=== PATIENT | female | born 1960 | race Caucasian/White ===

== ENCOUNTER 2017-04-11 08:21 | Emergency (ER) | payer BC ==
--- NOTE | 2017-04-11 08:29 | UC ---
Throat Pain/Nasal Mehrdad HPI - HPI Summary HPI Summary: sinus pain and nasal congestion worsening over the past 7 days now feels like she has a lot of drainage in her throat - History of Current Complaint Chief Complaint: UCRespiratory Stated Complaint: SINUS COMPLAINT Time Seen by Provider: 04/11/17 08:26 Hx Obtained From: Patient Hx Last Menstrual Period: JUN 2015 ?: No Onset/Duration: Sudden Onset, Lasting Days, Worse Since - getting worse daily Severity: Moderate Pain Intensity: 6 Pain Scale Used: 0-10 Numeric Cough: Nonproductive Associated Signs & Symptoms: Positive: Sinus Discomfort, Nasal Discharge - Allergies/Home Medications Allergies/Adverse Reactions: Allergies Allergy/AdvReac Type Severity Reaction Status Date / Time Codeine AdvReac Nausea Verified 04/11/17 08:39 Home Medications: Home Medications Cholecalciferol [Vitamin D3] 2,000 unit PO DAILY 04/11/17 [History Confirmed ] Conjugated Estrogens VAG CM* [Premarin VAG CREAM*] 1 applic VAGINAL SEE INSTRUCTIONS 04/11/17 [History Confirmed 04/11/17] Fexofenadine HCl [Allergy Relief] 60 mg PO DAILY 04/11/17 [History Confirmed ] Multivitamins/Minerals TAB* [Theragran/minerals TAB*] 1 tab PO DAILY 04/11/17 [ History Confirmed 04/11/17] Top Steroid Vaginal Cream 1 applic TOPICAL WEEKLY 04/11/17 [History Confirmed ] PMH/Surg Hx/FS Hx/Imm Hx Previously Healthy: No Respiratory History: Asthma - Surgical History Surgical History: Yes Surgery Procedure, Year, and Place: ROTATOR CUFF REPAIR -RIGHT - Family History Known Family History: Positive: Unknown - Social History Occupation: Employed Full-time Lives: With Family Alcohol Use: Daily Substance Use Type: None Smoking Status (MU): Never Smoked Tobacco Review of Systems Constitutional: Chills, Fatigue Skin: Negative Eyes: Negative ENT: Sore Throat, Ear Ache, Nasal Discharge, Sinus Congestion, Sinus Pain/ Tenderness Respiratory: Cough Cardiovascular: Negative Gastrointestinal: Negative Genitourinary: Negative Motor: Negative Neurovascular: Negative Musculoskeletal: Negative Neurological: Negative Psychological: Negative Is Patient Immunocompromised?: No All Other Systems Reviewed And Are Negative: Yes Physical Exam Triage Information Reviewed: Yes Appearance: Well-Nourished, Ill-Appearing - mild, Pain Distress - mild Vital Signs Reviewed: Yes Eye Exam: Normal Eyes: Positive: Conjunctiva Clear ENT Exam: Normal ENT: Positive: Normal ENT inspection, Hearing grossly normal, Pharynx normal, Nasal congestion, Nasal drainage, TMs normal. Negative: Tonsillar swelling, Tonsillar exudate, Trismus, Muffled/hoarse voice Dental Exam: Normal Neck exam: Normal Neck: Positive: Supple, Nontender, No Lymphadenopathy Respiratory Exam: Normal Respiratory: Positive: Chest non-tender, Lungs clear, Normal breath sounds, No respiratory distress, No accessory muscle use Cardiovascular Exam: Normal Cardiovascular: Positive: RRR, No Murmur, Pulses Normal, Brisk Capillary Refill Musculoskeletal Exam: Normal Musculoskeletal: Positive: Strength Intact, ROM Intact, No Edema Neurological Exam: Normal Neurological: Positive: Alert, Muscle Tone Normal Psychological Exam: Normal Skin Exam: Normal Throat Pain/Nasal Course/Dx - Course Assessment/Plan: flonase, zithromax, increase fluids, tylenol/ibuprofen for pain follow with pcp prn - Differential Dx/Diagnosis Differential Diagnosis/HQI/PQRI: Laryngitis, Otitis Media, Pharyngitis, Sinusitis, URI Provider Diagnoses: Acute Rhinosinusitis Discharge - Discharge Plan Condition: Stable Disposition: HOME Prescriptions: Azithromycin TAB* [Zithromax TAB (Z-ALEX) 250 mg #6 tabs] 2 tab PO .TODAY, THEN 1 DAILY #1 alex Fluticasone NASAL SPRAY 50MCG* [Flonase NASAL SPRAY 50MCG*] 2 spray BOTH NARES DAILY #1 btl Patient Education Materials: Rhinosinusitis (ED), How to Use Nasal [place] (ED) Referrals: Keagan KING,Ghislaine Martinez [Primary Care Provider] - If Needed
[2017-04-11 08:40] VITALS: BP 96/60
== END 2017-04-11 09:08 | disposition home or self-care (01) ==
LOC: UCCORT 08:21
DX: J01.90 Acute sinusitis, unspecified (principal); J45.909 Unspecified asthma, uncomplicated; Z88.5 Allergy status to narcotic agent
CPT/HCPCS: 99212; G0463

== ENCOUNTER 2017-08-07 12:31 | Emergency (ER) | payer BC ==
[2017-08-07 14:33] VITALS: BP 104/71
--- NOTE | 2017-08-07 15:00 | UC ---
Throat Pain/Nasal Mehrdad HPI - HPI Summary HPI Summary: right maxillary sinus pressure for the past 10 days, it is starting to hurt in her jaw. - History of Current Complaint Chief Complaint: UCRespiratory Stated Complaint: SINUS Time Seen by Provider: 08/07/17 14:39 Hx Obtained From: Patient Hx Last Menstrual Period: JUN 2015 ?: No Onset/Duration: Sudden Onset, Lasting Days Severity: Moderate Associated Signs & Symptoms: Positive: Sinus Discomfort - Allergies/Home Medications Allergies/Adverse Reactions: Allergies Allergy/AdvReac Type Severity Reaction Status Date / Time Codeine AdvReac Nausea Verified 08/07/17 14:33 PMH/Surg Hx/FS Hx/Imm Hx Previously Healthy: Yes - Surgical History Surgical History: Yes Surgery Procedure, Year, and Place: ROTATOR CUFF REPAIR -RIGHT - Family History Known Family History: Positive: Unknown - Social History Alcohol Use: Daily Alcohol Amount: 1 red wine daily Substance Use Type: None Smoking Status (MU): Never Smoked Tobacco Review of Systems Constitutional: Negative Skin: Negative Eyes: Negative ENT: Ear Ache, Nasal Discharge, Sinus Congestion, Sinus Pain/Tenderness Respiratory: Cough Cardiovascular: Negative Gastrointestinal: Negative Genitourinary: Negative Motor: Negative Neurovascular: Negative Musculoskeletal: Negative Neurological: Negative Psychological: Negative Is Patient Immunocompromised?: No All Other Systems Reviewed And Are Negative: Yes Physical Exam Triage Information Reviewed: Yes Appearance: Well-Nourished, Ill-Appearing, Pain Distress Vital Signs: Initial Vital Signs Temp 99.0 F 08/07/17 14:29 Pulse 61 08/07/17 14:29 Resp 16 08/07/17 14:29 BP 104/71 08/07/17 14:29 Pulse Ox 100 08/07/17 14:29 Vital Signs Reviewed: Yes Eye Exam: Normal ENT: Positive: Pharyngeal erythema, Nasal congestion, Nasal drainage, Dental tenderness, Sinus tenderness Dental Exam: Normal Neck exam: Normal Neck: Positive: Supple, Nontender, No Lymphadenopathy Respiratory Exam: Normal Respiratory: Positive: Chest non-tender, Lungs clear, Normal breath sounds Cardiovascular Exam: Normal Cardiovascular: Positive: RRR, No Murmur, Pulses Normal Abdominal Exam: Normal Abdomen Description: Positive: Nontender, No Organomegaly, Soft Bowel Sounds: Positive: Present Musculoskeletal Exam: Normal Musculoskeletal: Positive: Strength Intact, ROM Intact, No Edema Neurological Exam: Normal Psychological Exam: Normal Skin Exam: Normal Throat Pain/Nasal Course/Dx - Course Course Of Treatment: hx obtained, exam performed ,meds reviewed, treated for sinusitis - Differential Dx/Diagnosis Differential Diagnosis/HQI/PQRI: Otitis Media, Sinusitis, URI Provider Diagnoses: sinusitis Discharge - Discharge Plan Condition: Stable Disposition: HOME Prescriptions: DOXYcycline CAP(*) [DOXYcycline 100MG CAP(*)] 100 mg PO BID #14 cap Patient Education Materials: Sinusitis (ED) Referrals: Keagan KING,Ghislaine Martinez [Primary Care Provider] - Additional Instructions: 1. take the medication as prescribed. 2. Increase fluid intake, use humdifier, warm compreses to sinus
== END 2017-08-07 15:05 | disposition home or self-care (01) ==
LOC: UCCORT 12:31
DX: J32.9 Chronic sinusitis, unspecified (principal); Z88.5 Allergy status to narcotic agent
CPT/HCPCS: 99212; G0463

== ENCOUNTER 2017-12-11 07:29 | Emergency (ER) | payer BC ==
--- NOTE | 2017-12-11 08:00 | UC ---
Lower Extremity/Ankle HPI - HPI Summary HPI Summary: 57 yo female with left little toe pain x 1 month after injuring it a month ago pain worse now after doing some gardening - History of Current Complaint Chief Complaint: UCLowerExtremity Stated Complaint: LFT FOOT TOE COMPLAINT Time Seen by Provider: 12/11/17 07:47 Hx Obtained From: Patient Hx Last Menstrual Period: JUN 2015 Onset/Duration: Sudden Onset, Lasting Weeks Severity Initially: Moderate Severity Currently: Mild Pain Intensity: 2 Pain Scale Used: 0-10 Numeric Aggravating Factor(s): Standing, Ambulation Alleviating Factor(s): Rest Able to Bear Weight: Yes - Allergies/Home Medications Allergies/Adverse Reactions: Allergies Allergy/AdvReac Type Severity Reaction Status Date / Time codeine Allergy Nausea Verified 12/11/17 07:39 PMH/Surg Hx/FS Hx/Imm Hx Previously Healthy: Yes - Surgical History Surgical History: Yes Surgery Procedure, Year, and Place: ROTATOR CUFF REPAIR -RIGHT - Family History Known Family History: Negative: Cardiac Disease, Hypertension - Social History Alcohol Use: Daily Alcohol Amount: 1 red wine daily Substance Use Type: None Smoking Status (MU): Never Smoked Tobacco Review of Systems Constitutional: Negative Skin: Negative Eyes: Negative ENT: Negative Respiratory: Negative Cardiovascular: Negative Gastrointestinal: Negative Genitourinary: Negative Motor: Negative Neurovascular: Negative Musculoskeletal: Arthralgia, Myalgia Neurological: Negative Psychological: Negative Is Patient Immunocompromised?: No All Other Systems Reviewed And Are Negative: Yes Physical Exam Triage Information Reviewed: Yes Appearance: Well-Appearing, No Pain Distress, Well-Nourished Vital Signs: Initial Vital Signs Temp 98.3 F 12/11/17 07:41 Pulse 64 12/11/17 07:41 Resp 20 12/11/17 07:41 BP 144/125 12/11/17 07:41 Pulse Ox 100 12/11/17 07:41 Vital Signs Reviewed: Yes Eyes: Positive: Conjunctiva Clear ENT: Positive: Hearing grossly normal. Negative: Nasal congestion, Nasal drainage, Trismus, Muffled voice, Hoarse voice Neck: Positive: Supple Respiratory: Positive: Lungs clear, Normal breath sounds, No respiratory distress Cardiovascular: Positive: RRR, No Murmur, Pulses Normal Musculoskeletal: Positive: ROM Limited @ - left little toe, Edema @ - left little toe Neurological: Positive: Alert Psychological Exam: Normal Skin Exam: Normal Diagnostics - Radiology No standard instances Xray Interpretation: Positive (See Comments) - NONDISPLACED TRANSVERSE FRACTURE THROUGH THE FUSED LEFT FIFTH DISTAL AND MIDDLE PHALANGES Radiology Interpretation Completed By: Radiologist Lower Extremity Course/Dx - Differential Dx/Diagnosis Provider Diagnoses: subacute right little toe fracture Discharge - Sign-Out/Discharge Documenting (check all that apply): Discharge/Admit/Transfer - Discharge Plan Condition: Stable Disposition: HOME Patient Education Materials: Toe Fracture (ED) Forms: *Work Release Referrals: Keagan KING,Ghislaine Martinez [Primary Care Provider] - 2 Weeks (if not improved) Additional Instructions: continue to martita tape - Billing Disposition and Condition Condition: STABLE Disposition: HOME
--- NOTE | 2017-12-11 08:17 | RAD ---
HISTORY: Left fifth toe pain, remote trauma COMPARISONS: Left foot dated October 27, 2006 VIEWS: 3, Frontal, lateral, and oblique views of the fifth digit of the left toe FINDINGS: BONE DENSITY: Normal. BONES: On prior imaging, the left fifth middle and distal phalanges were fused. On the current examination, there is an ill-defined linear lucency at the expected location of the fifth DIP joint consistent with nondisplaced fracture. JOINTS: There is no arthropathy. ALIGNMENT: There is no dislocation. SOFT TISSUES: Unremarkable. OTHER FINDINGS: None. IMPRESSION: NONDISPLACED TRANSVERSE FRACTURE THROUGH THE FUSED LEFT FIFTH DISTAL AND MIDDLE PHALANGES
[2017-12-11 08:26] VITALS: BP 110/62
== END 2017-12-11 08:32 | disposition home or self-care (01) ==
LOC: UCCORT 07:29
DX: S92.532A Displaced fracture of distal phalanx of left lesser toe(s), initial encounter for closed fracture (principal); S92.522A Displaced fracture of middle phalanx of left lesser toe(s), initial encounter for closed fracture; X58.XXXA Exposure to other specified factors, initial encounter; Y93.H2 Activity, gardening and landscaping; Y92.007 Garden or yard of unspecified non-institutional (private) residence as the place of occurrence of the external cause; Z88.5 Allergy status to narcotic agent
CPT/HCPCS: 99211; G0463

== ENCOUNTER 2018-05-02 16:37 | Emergency (ER) | payer BC ==
--- NOTE | 2018-05-02 17:28 | UC ---
Minor Trauma HPI - HPI Summary HPI Summary: 57-year-old woman comes in with a complaint of a fall 2 days ago and she landed on her sacrUM. She's had pain in this area ever since. Pain is worse with walking and sitting. She points to her sacral area when she showing the location of the pain. No other injury of the arms or legs. No low back pain. No weakness or numbness. - History of Current Complaint Stated Complaint: S/P FALL-LOWER BACK PAIN Time Seen by Provider: 05/02/18 17:19 Hx Last Menstrual Period: JUN 2015 - Allergies/Home Medications Allergies/Adverse Reactions: Allergies Allergy/AdvReac Type Severity Reaction Status Date / Time codeine Allergy Nausea Verified 12/11/17 07:39 PMH/Surg Hx/FS Hx/Imm Hx Previously Healthy: Yes - Surgical History Surgical History: Yes Surgery Procedure, Year, and Place: ROTATOR CUFF REPAIR -RIGHT - Family History Known Family History: Negative: Cardiac Disease, Hypertension - Social History Alcohol Use: Daily Alcohol Amount: 1 red wine daily Substance Use Type: None Smoking Status (MU): Never Smoked Tobacco Review of Systems Constitutional: Negative Skin: Negative Eyes: Negative ENT: Negative Respiratory: Negative Cardiovascular: Negative Gastrointestinal: Negative Motor: Negative Neurovascular: Negative Musculoskeletal: Other: - SEE HPI Neurological: Negative Psychological: Negative Is Patient Immunocompromised?: No All Other Systems Reviewed And Are Negative: Yes Physical Exam Triage Information Reviewed: Yes Appearance: Well-Appearing, No Pain Distress, Well-Nourished Vital Signs Reviewed: Yes Eye Exam: Normal Eyes: Positive: Conjunctiva Clear Neck exam: Normal Neck: Positive: Supple Respiratory: Positive: No respiratory distress Musculoskeletal: Positive: Other: - Patient is mildly tender to palpation on the lower sacrum and the superior part of the coccyx. The low back and the rest of the pelvis is nontender to palpation. Full strength and range of motion and legs and arms. Neurological Exam: Normal Neurological: Positive: Alert, Muscle Tone Normal Psychological Exam: Normal Psychological: Positive: Age Appropriate Behavior Skin Exam: Normal Minor Trauma Course/Dx - Course Course Of Treatment: Order Information: SACRUM/COCCYX 2+ VWS. Accession Number : [id number]. CPT: 06656. Indication: Sacral pain after a fall from a chair. Comparison: None. Technique: AP and lateral views sacrum and coccyx. Report : The visualized bones of the sacrum and coccyx are well-corticated and properly aligned. The joint spaces are adequately maintained. There is no radiographically apparent acute fracture or dislocation. IMPRESSION: Normal radiograph of the sacrum and coccyx. If the patient's symptoms persist, follow- up imaging is recommended. . <Electronically signed by Brooks Garcia MD in [facility]> 05/02/[id number]. I discussed the results of the x-ray with the patient. The plan is ice ibuprofen and rest. Recheck if not improving or worse. - Differential Dx/Diagnosis Provider Diagnoses: SACRUM CONTUSION Discharge - Sign-Out/Discharge Documenting (check all that apply): Patient Departure All imaging exams completed and their final reports reviewed: Yes - Discharge Plan Condition: Stable Disposition: HOME Patient Education Materials: Contusion in Adults (ED), Acute Low Back Pain (ED) Referrals: Keagan KING,Ghislaine Martinez [Primary Care Provider] - Additional Instructions: FOLLOW UP WITH YOUR DOCTOR IF NOT COMPLETELY IMPROVED. GET RECHECKED FOR ANY WORSENING OF YOUR CONDITION OR QUESTIONS OR CONCERNS. - Billing Disposition and Condition Condition: STABLE Disposition: Home
[2018-05-02 17:52] VITALS: BP 106/74
--- NOTE | 2018-05-02 18:15 | RAD ---
Indication: Sacral pain after a fall from a chair Comparison: None. Technique: AP and lateral views sacrum and coccyx. Report: The visualized bones of the sacrum and coccyx are well-corticated and properly aligned. The joint spaces are adequately maintained. There is no radiographically apparent acute fracture or dislocation. IMPRESSION: Normal radiograph of the sacrum and coccyx. If the patient's symptoms persist, follow-up imaging is recommended.
== END 2018-05-02 18:33 | disposition home or self-care (01) ==
LOC: UCCORT 16:37
DX: S30.0XXA Contusion of lower back and pelvis, initial encounter (principal); W19.XXXA Unspecified fall, initial encounter; Y92.9 Unspecified place or not applicable; Z88.5 Allergy status to narcotic agent
CPT/HCPCS: 72220; 99211; G0463